=== PATIENT | female | born 1990 | race Caucasian/White ===

== ENCOUNTER 2018-08-05 02:33 | Inpatient (IN) | payer OTHER ==
[2018-08-05 03:44] LABS: Appearance,Urine Clear (Clear); Bacteria,Urine Rare /hpf; Bilirubin,Urine Negative (Negative); Blood,Urine Trace (Negative); Color,Urine Yellow; Glucose,Urine (UA) Negative (Negative); Ketones,Urine Negative (Negative); Leukocyte Esterase,Urine Negative (Negative); Mucus,Urine Rare /hpf; Nitrite,Urine Negative (Negative); Protein,Urine Trace (Negative); RBC,Urine 6 /hpf (0-5); Specific Gravity,Urine 1.022 (1.001-1.035); Squamous Epithelial Cell,Urine 4 /hpf (0-4); Urobilinogen,Urine <2.0 mg/dL (<2.0); WBC,Urine 1 /hpf (0-5)
[2018-08-05] MEDS: LACTATED RINGERS 1,000 ML IV SCH ×3 (03:53→11:38)
[2018-08-05] MEDS ORDERED: LABETALOL 5 MG/ML VIAL MDV IVP PRN ×4 (03:57→04:26)
[2018-08-05] MEDS ORDERED: LABETALOL 5 MG/ML VIAL MDV IVP SCH (04:00)
[2018-08-05 04:03] LABS: Basophils % (A) 0 %; Eosinophils # (A) 0.1 k/uL (0-0.7); Eosinophils % (A) 1 %; HCT 39.1 % (34.0-46.0); Lymphocytes # (A) 2.1 k/uL (1.0-4.8); Lymphocytes % (A) 20 %; MCH 31.2 pg (25.0-35.0); MCHC 33.2 g/dL (31.0-37.0); MCV 94.2 fL (80.0-100.0); Monocytes # (A) 0.4 k/uL (0-1.0); Monocytes % (A) 4 %; Neutrophils # (A) 7.7 k/uL (1.3-7.7); Neutrophils % (A) 75 %; Platelet Count 256 k/uL (150-450); RBC 4.15 m/uL (3.80-5.40); RDW 13.2 % (11.5-15.5); WBC 10.4 k/uL (3.8-10.6)
[2018-08-05 04:10] LABS: ALT 21 U/L (9-52); AST 11 U/L (14-36); Blood Urea Nitrogen 15 mg/dL (7-17); LDH 481 U/L (313-618); Uric Acid 3.6 mg/dL (3.7-7.4)
[2018-08-05] MEDS ORDERED: hydrALAZINE HCL 20 MG/ML 1 ML VIAL IVP PRN (04:26)
[2018-08-05] MEDS ORDERED: OXYTOCIN 10 UNIT/ML 1 ML VIAL IM PRN (05:20)
[2018-08-05] MEDS ORDERED: fentaNYL (PF) 50 MCG/ML 5 ML AMP ONE (05:20)
[2018-08-05] MEDS ORDERED: TERBUTALINE 1 MG/ML VIAL SQ PRN (05:20)
[2018-08-05] MEDS ORDERED: SODIUM CHLORIDE 0.9% 100 ML BAG ONE (05:20)
[2018-08-05] MEDS ORDERED: LIDOCAINE 0.5% (PF) 5 MG/ML (50 ML SDV) SQ PRN (05:20)
[2018-08-05] MEDS ORDERED: ROPIVACAINE 5MG/ML 20ML VIAL ONE (05:20)
[2018-08-05] MEDS ORDERED: METHYLERGONOVINE 0.2 MG/ML 1 ML AMP IM PRN (05:20)
[2018-08-05] MEDS ORDERED: CARBOPROST TROMETHAMINE 250 MCG/ML 1 ML AMP IM PRN (05:20)
[2018-08-05 07:04] VITALS: BMI 42.5
--- NOTE | 2018-08-05 08:44 | P.HPOB ---
History of Present Illness H&P Date: 08/05/18 Chief Complaint: Contractions This is a 28-year-old 1 para 0 woman with an estimated due date of 08/14 based on LMP consistent with second trimester ultrasound. She presents at 38+ weeks gestation with regular uterine contractions. Upon initial evaluation in labor and delivery triage her blood pressures were found to be consistently and significantly elevated. Laboratory evaluation for preeclampsia was negative and she was given multiple doses of labetalol without improvement in her blood pressure. During this timeframe she did change her cervix from 2-3 cm dilated and was regularly philly. She was therefore admitted in active labor and for further blood pressure management. She had not had a hypertensive issues in the prior to this. She denied any other specific symptoms such as headaches, visual changes, upper abdominal pain or sudden increase in swelling. Following admission she did immediately receive an epidural anesthetic which significantly improved her blood pressures. Currently she is resting comfortably with an epidural anesthetic in place. Laboratory data: Blood type A+, antibody screen negative, rubella immune, VDRL nonreactive, hepatitis B surface antigen negative, HIV negative, group B strep negative, glucose tolerance testing within normal limits. Review of Systems All systems: negative Past Medical History Past Medical History: Asthma Additional Past Medical History / Comment(s): Obesity History of Any Multi-Drug Resistant Organisms: None Reported Past Surgical History: No Surgical Hx Reported Past Anesthesia/Blood Transfusion Reactions: No Reported Reaction Past Psychological History: Depression Additional Psychological History / Comment(s): on Wellbutrin before Smoking Status: Former smoker Past Drug Use History: Marijuana - Past Family History Mother Family Medical History: Cancer Medications and Allergies Home Medications Medication Instructions Recorded Confirmed Type Pnv,Calcium 72/Iron/Folic Acid 1 tab PO DAILY 08/05/18 08/05/18 History [ Plus Tablet] Allergies Allergy/AdvReac Type Severity Reaction Status Date / Time Penicillins Allergy Unknown Verified 08/05/18 02:38 Exam Vital Signs Temp Pulse Resp BP Pulse Ox 08/05/18 05:40 98.4 F 106 H 16 173/90 98 08/05/18 02:39 97.7 F 148 H 18 148/89 99 Intake and Output 08/04/18 08/05/18 08/05/18 22:59 06:59 14:59 Other: # Voids 3 Weight 127.006 kg Upon my initial evaluation the patient is resting comfortably with an epidural anesthetic in place. heart tones showed decreased variability with occasional variable heart rate decelerations. On pelvic examination the cervix is 4-5 cm dilated, 100% effaced and the vertex is high in the -3 station. Artificial rupture of membranes is undertaken and clear fluid is noted. She is philly irregularly every 2-6 minutes. Results Result Diagrams: 08/05/18 03:45 08/05/18 03:45 Abnormal Lab Results - Last 24 Hours (Table) 08/05/18 08/05/18 Range/Units 03:30 03:45 Uric Acid 3.6 L (3.7-7.4) mg/dL AST 11 L (14-36) U/L Urine Protein Trace H (Negative) Urine Blood Trace H (Negative) Urine RBC 6 H (0-5) /hpf Urine Bacteria Rare H (None) /hpf Urine Mucus Rare H (None) /hpf Assessment and Plan (1) 38 weeks gestation of Current Visit: Yes Status: Acute Code(s): Z3A.38 - 38 WEEKS GESTATION OF SNOMED Code(s): 17749798 (2) Spontaneous onset of labor Current Visit: Yes Status: Acute Code(s): WZO9528 - SNOMED Code(s): 48975373 (3) Obesity Current Visit: Yes Status: Acute Code(s): E66.9 - OBESITY, UNSPECIFIED SNOMED Code(s): 141472740 (4) Hypertension complicating Current Visit: Yes Status: Acute Code(s): O16.9 - UNSPECIFIED MATERNAL HYPERTENSION, UNSPECIFIED TRIMESTER SNOMED Code(s): 80072197487963 Plan: 28-year-old 1 para 0 woman admitted at 38+ weeks gestation in early active labor with hypertension. Her hypertension has resolved with epidural anesthetic placement. heart tones are overall reassuring however there is some decreased variability on which will be monitored closely. Patient is currently in the supine position and we will attempt position changes to improve variability. Pitocin augmentation will be initiated as she is philly irregularly. Anticipate normal spontaneous vaginal delivery.
--- NOTE | 2018-08-05 12:57 | P.PROBDLV ---
Vaginal Delivery Note - . Vaginal Delivery Note: Findings: Male infant in the vertex presentation with Apgars of 9 at 1 minute and 9 at 5 minutes weighing 6 lbs. 2 oz., 2790 g. Small calcified placenta. Three-vessel cord. No perineal lacerations. Delivery summary: This is a 28-year-old 1 para 0 woman who presented at 38-5/7 weeks gestation in spontaneous active labor. She did have some significant hypertension on upon presentation which was managed with labetalol. Preeclamptic labs were normal. Her blood pressures did decrease significantly after she got an epidural anesthetic. She had an unremarkable progression from 3 cm to complete. She had strong urge to push. She was repositioned, And draped in the dorsal lithotomy position. Should a very precipitous delivery with pushing over 3 contractions to deliver a liveborn male infant onto the field. Nose and mouth were bulb suctioned. Cord was clamped and cut. Infant was placed on the maternal abdomen. Apgars 9 at 1 minute and 9 at 5 minutes. Weight 6 lbs. 2 oz. An intact, three-vessel cord placenta was expressed after 2 minutes second stage of labor. The perineum was inspected and no lacerations were noted. The uterus was massaged and was noted to be firm at the level of the umbilicus. Patient received Pitocin following the placenta. EBL was approximately 150 mL's. Both mother and were doing well post delivery in the room.
[2018-08-05] MEDS ORDERED: IBUPROFEN 600 MG TAB PO PRN (15:33)
[2018-08-05] MEDS ORDERED: ZOLPIDEM 5 MG TAB PO PRN (15:33)
[2018-08-05] MEDS ORDERED: diphenhydrAMINE 50 MG/ML 1 ML VIAL IVP PRN ×2 (15:33)
[2018-08-05] MEDS ORDERED: diphenhydrAMINE 50 MG CAP PO PRN (15:33)
[2018-08-05] MEDS ORDERED: LANOLIN CREAM 5 GM TUBE TOPICAL PRN (15:33)
[2018-08-05] MEDS ORDERED: HYDROCORTISONE 2.5% RECTAL CREAM 30 GM TUBE RECTAL PRN (15:33)
[2018-08-05] MEDS ORDERED: SIMETHICONE 80 MG CHEWABLE PO PRN (15:33)
[2018-08-05] MEDS ORDERED: ACETAMINOPHEN TAB 325 MG TAB PO PRN (15:33)
[2018-08-05] MEDS ORDERED: WITCH HAZEL 1 EACH MED..PAD TOPICAL PRN (15:33)
[2018-08-05] MEDS ORDERED: diphenhydrAMINE 25 MG CAP PO PRN (15:33)
[2018-08-05] MEDS ORDERED: OXYTOCIN 20 UNITS/1000 ML NS 1,000 ML IV SCH (15:45)
[2018-08-05] MEDS: SENNOSIDES-DOCUSATE SODIUM 1 EACH TAB PO SCH (21:09)
[2018-08-05 22:35] VITALS: RESP 16
[2018-08-06 07:42] LABS: Basophils % (A) 0 %; Eosinophils # (A) 0.1 k/uL (0-0.7); Eosinophils % (A) 1 %; HCT 35.6 % (34.0-46.0); Lymphocytes # (A) 1.9 k/uL (1.0-4.8); Lymphocytes % (A) 22 %; MCH 31.9 pg (25.0-35.0); MCHC 33.6 g/dL (31.0-37.0); MCV 94.8 fL (80.0-100.0); Mean Platelet Volume 6.9; Monocytes # (A) 0.4 k/uL (0-1.0); Monocytes % (A) 4 %; Neutrophils # (A) 6.2 k/uL (1.3-7.7); Neutrophils % (A) 72 %; Platelet Count 248 k/uL (150-450); RBC 3.76 m/uL (3.80-5.40); RDW 13.5 % (11.5-15.5); WBC 8.6 k/uL (3.8-10.6)
--- NOTE | 2018-08-06 09:40 | P.DS ---
Providers Date of admission: 08/05/18 05:08 Expected date of discharge: 08/06/18 Attending physician: Braden Foss Primary care physician: Stated None - Discharge Diagnosis(es) (1) Status post vaginal delivery Current Visit: Yes Status: Acute (2) 38 weeks gestation of Current Visit: Yes Status: Acute (3) Hypertension complicating Current Visit: Yes Status: Acute (4) Obesity Current Visit: Yes Status: Acute (5) Spontaneous onset of labor Current Visit: Yes Status: Acute Hospital Course: This is a very pleasant 28-year-old 1 para 0 who presented to labor and delivery at 38-5/7 weeks in spontaneous active labor. Patient did note significant hypertension upon presentation which was managed with labetalol. Pre-clinic labs are normal and her blood pressures decreased significantly after epidural analgesia. Patient progressed to complete had a normal spontaneous vaginal delivery of a viable male at 1244, weight of 6 lbs. 2 oz., Apgars of 9 and 9 at one and 5 minutes respectively. Patient's course has been uneventful. On this day #1 she is ambulating and voiding without difficulty. She is tolerating a regular diet without nausea or vomiting. She is breast-feeding. She states her lochia is moderate. She does wish discharge home at 24 hours. Plan - Discharge Summary New Discharge Prescriptions: No Action Pnv,Calcium 72/Iron/Folic Acid [ Plus Tablet] 1 tab PO DAILY Discharge Medication List Pnv,Calcium 72/Iron/Folic Acid [ Plus Tablet] 1 tab PO DAILY 08/05/18 [ History] Follow up Appointment(s)/Referral(s): Braden Foss MD [STAFF PHYSICIAN] - 6 Weeks Patient Instructions/Handouts: Vaginal Delivery (DC), Vaginal Delivery (GEN) Discharge Disposition: HOME SELF-CARE
[2018-08-07] MEDS: LACTATED RINGERS 1,000 ML IV SCH ×2 (00:29→05:13)
[2018-08-07] MEDS: SENNOSIDES-DOCUSATE SODIUM 1 EACH TAB PO SCH ×3 (00:30→09:27)
[2018-08-07 08:36] VITALS: BP 154/92; PULSE 103; TEMP 98.5
--- NOTE | 2018-08-07 10:15 | P.PNOBGVD ---
Subjective - Subjective Principal diagnosis: PPD 2 Interval history: Patient is doing well, patient ended up staying overnight secondary to elevated bilirubin level in her male. Patient denies concerns of herself today and will be discharged home. She is ambulating and voiding without difficulty. She is tolerating a regular diet and she denies any pain control issues. She is wishing to breast-feed but however does not have a pump at this time. Patient reports: Reports appetite normal, Reports voiding normally, Reports pain well controlled, Reports ambulating normally : doing well (On a bili blanket) Objective - Latest Vital Signs Latest vital signs: Vital Signs Temp Pulse Resp BP Pulse Ox 08/07/18 08:00 98.5 F 103 H 16 154/92 08/07/18 00:00 98.6 F 105 H 16 148/93 98 08/06/18 16:00 98.4 F 102 H 16 147/87 - Exam Extremities: Present: normal Abdomen: Present: normal appearance, soft Uterus: Present: normal, firm Assessment and Plan (1) Status post vaginal delivery Current Visit: Yes Status: Acute Code(s): BTX2543 - SNOMED Code(s): 382958842 (2) 38 weeks gestation of Current Visit: Yes Status: Acute Code(s): Z3A.38 - 38 WEEKS GESTATION OF SNOMED Code(s): 47481392 (3) Hypertension complicating Current Visit: Yes Status: Acute Code(s): O16.9 - UNSPECIFIED MATERNAL HYPERTENSION, UNSPECIFIED TRIMESTER SNOMED Code(s): 28275111263542 (4) Obesity Current Visit: Yes Status: Acute Code(s): E66.9 - OBESITY, UNSPECIFIED SNOMED Code(s): 823752490 (5) Spontaneous onset of labor Current Visit: Yes Status: Acute Code(s): QAH4181 - SNOMED Code(s): 10101111 Plan: We'll plan discharge home today. Patient is to follow-up with Dr. Hebert in 6 weeks for routine care. Should she have any concerns prior to this appointment she is urged to call the office to be seen sooner.
== END 2018-08-07 14:45 | disposition home or self-care (01) | DRG 806 ==
LOC: FBPOP 02:33 → 4FBP 05:08
PROVIDERS: ADMIT Obstetrics & Gynecology; ATTEND Obstetrics & Gynecology
PROC: 00HU33Z Insertion of Infusion Device into Spinal Canal, Percutaneous Approach (ICD-10-PCS; principal; 2018-08-05)
PROC: 10E0XZZ Delivery of Products of Conception, External Approach (ICD-10-PCS; principal; 2018-08-05)
PROC: 3E0R3NZ Introduction of Analgesics, Hypnotics, Sedatives into Spinal Canal, Percutaneous Approach (ICD-10-PCS; principal; 2018-08-05)
PROC: 10907ZC Drainage of Amniotic Fluid, Therapeutic from Products of Conception, Via Natural or Artificial Opening (ICD-10-PCS; principal; 2018-08-05)
DX: O16.4 Unspecified maternal hypertension, complicating childbirth (principal); Z68.41 Body mass index [BMI] 40.0-44.9, adult; Z37.0 Single live birth; E66.9 Obesity, unspecified; O62.3 Precipitate labor; O99.214 Obesity complicating childbirth; Z3A.38 38 weeks gestation of pregnancy; Z87.891 Personal history of nicotine dependence
CPT/HCPCS: 59025; 81001; 82565; 83615; 84450; 84460; 84520; 84550; 85025; 86850; 86900; 86901; 88307; 96360; 96361; 96375; 96376; 99215

== ENCOUNTER 2018-12-02 18:18 | Emergency (ER) | payer OTHER ==
--- NOTE | 2018-12-02 19:59 | XR ---
Right foot 3 views. History pain. Comparison none. FINDINGS: I see no fracture nor dislocation. Metatarsals are intact. There are no erosions. IMPRESSION: Negative right foot exam.
--- NOTE | 2018-12-02 20:00 | XR ---
Right ankle 3 views. History pain. Comparison none. FINDINGS: Ankle mortise is anatomic. I see no fracture nor dislocation. Joint spaces are normal. There is mild soft tissue swelling over the lateral malleolus. Impression Negative right ankle exam for fracture. Mild soft tissue swelling.
--- NOTE | 2018-12-02 20:02 | ED ---
Lower Extremity Injury HPI - General Chief Complaint: Extremity Injury, Lower Stated Complaint: Foot injury Source: patient Mode of arrival: ambulatory Limitations: no limitations - History of Present Illness Initial Comments: 28-year-old female states she was walking today when she misstepped rolling her right ankle. Patient denies fall or injury to any other extremity, head injury injury to the back or neck. Patient denies he lost conscious. Patient states she had pain in the lateral aspect of her ankle, she states she has had previous injury to the ankle including multiple sprains. Patient states she feels increased laxity. Patient denies any numbness tingling or loss sensation , coolness or pallor of the extremity. Patient denies a dislocation. Patient denies any knee pain associated with fever ankle pain. Remaining review of system negative upon arrival patient appears well, she is able toward. Full weight-bearing.Patient denies any recent fever, chills, shortness of breath, chest pain, back pain, abdominal pain, nausea or vomiting, numbness or tingling , dysuria or hematuria, constipation or diarrhea, headaches or visual changes, or any other complaints. - Related Data Home Medications Medication Instructions Recorded Confirmed Pnv,Calcium 72/Iron/Folic Acid 1 tab PO DAILY 08/05/18 08/05/18 [ Plus Tablet] Allergies Allergy/AdvReac Type Severity Reaction Status Date / Time Penicillins Allergy Unknown Verified 12/02/18 18:25 Review of Systems ROS Statement: Those systems with pertinent positive or pertinent negative responses have been documented in the HPI. ROS Other: All systems not noted in ROS Statement are negative. Past Medical History Past Medical History: Asthma Additional Past Medical History / Comment(s): Obesity History of Any Multi-Drug Resistant Organisms: None Reported Past Surgical History: No Surgical Hx Reported Past Anesthesia/Blood Transfusion Reactions: No Reported Reaction Past Psychological History: Depression Smoking Status: Current some day smoker Past Alcohol Use History: None Reported Past Drug Use History: Marijuana - Past Family History Mother Family Medical History: Cancer General Exam - General Exam Comments Initial Comments: General: The patient is awake and alert, in no distress, and does not appear acutely ill. Eye: Pupils are equal, round and reactive to light, extra-ocular movements are intact. No nystagmus. There is normal conjunctiva bilaterally. No signs of icterus. Ears, nose, mouth and throat: There are moist mucous membranes and no oral lesions. Neck: The neck is supple, there is no tenderness or JVD. Cardiovascular: There is a regular rate and rhythm. No murmur, rub or gallop is appreciated. Respiratory: Lungs are clear to auscultation, respirations are non-labored, breath sounds are equal. No wheezes, stridor, rales, or rhonchi. Musculoskeletal: Upon inspection of the ankles bilaterally there is mild soft tissue swelling over the lateral malleolus of the right ankle in comparison with the left. Patient is tender patient of the lateral malleolus. Patient is able to fully range at the ankles equal comparison bilaterally. No noted laxity. Strength 5 out of 5 with dorsiflexion and plantarflexion. Patient is increased pain with inversion in comparison with eversion. Patient sensation intact of the lower extremities from knee to toes equal comparison bilaterally. Compartments are soft and compressible no evidence of footdrop. Dorsalis pedis pulses are +2 equal comparison bilaterally Neurological: A&O x 3. CN II-XII intact, There are no obvious motor or sensory deficits. Coordination appears grossly intact. Speech is normal. Skin: Skin is warm and dry and no rashes or lesions are noted. Psychiatric: Cooperative, appropriate mood & affect, normal judgment. Limitations: no limitations Course Vital Signs 12/02/18 12/02/18 18:23 20:05 Temperature 98.8 F 97.8 F Pulse Rate 108 H 88 Respiratory 20 16 Rate Blood Pressure 136/77 129/65 O2 Sat by Pulse 98 97 Oximetry Medical Decision Making - Medical Decision Making imaging studies are negative for acute osseous process. There is concern for possible ligamentous injury however I would feel this is minor. Patient is placed in air stirrup and given instruction to follow-up with [facility] surgery if symptoms persist. Patient has no pain to palpation of the forefoot concerning for Lisfranc. Patient has some mild tenderness to palpation over the lateral aspect of the right foot. No evidence of ecchymosis. No soft tissue swelling of the foot. Patient neurovascularly intact, compartments soft and compressible. No evidence of the tram. At this time do feel patient is stable for discharge with [facility] instructions and outpatient follow-up. Patient is agreeable plan. Denies questions at this time. Return parameters were discussed at length with patient who verbalizes understanding Disposition Clinical Impression: Right ankle sprain Disposition: HOME SELF-CARE Condition: Good Instructions (If sedation given, give patient instructions): Ankle Sprain (ED) , R.I.C.E. Treatment (ED) Additional Instructions: Please use medication as discussed. Please follow-up with family doctor in the next 2 days, if symptoms persist for greater than 1 week please seek orthopedic surgery evaluation. Please return to emergency room if the symptoms increase or worsen or for any other concerns. Is patient prescribed a controlled substance at d/c from ED?: No Referrals: None,Stated [Primary Care Provider] - 1-2 days Zaid Kang DO [Medical Doctor] - 1-2 days Time of Disposition: 20:02
[2018-12-02 20:23] VITALS: BP 129/65; PULSE 88; RESP 16; TEMP 97.8
== END 2018-12-02 20:05 | disposition home or self-care (01) ==
LOC: EC 18:18
DX: S93.401A Sprain of unspecified ligament of right ankle, initial encounter (principal); F17.200 Nicotine dependence, unspecified, uncomplicated; Z88.0 Allergy status to penicillin; X50.1XXA Overexertion from prolonged static or awkward postures, initial encounter; Y93.89 Activity, other specified; Y92.009 Unspecified place in unspecified non-institutional (private) residence as the place of occurrence of the external cause
CPT/HCPCS: 29515; 99283

== ENCOUNTER → 2021-09-15 | Outpatient (CLI) | payer OTHER | END | disposition home or self-care (01) | LOC: LABWHC1 06:29 | PROVIDERS: ATTEND Emergency Medicine | DX: Z20.822 Contact with and (suspected) exposure to COVID-19 (principal) | CPT/HCPCS: 87635 ==

== ENCOUNTER → 2021-09-16 | Outpatient (CLI) | payer OTHER | END | disposition home or self-care (01) | LOC: LABWHC1 06:26 | PROVIDERS: ATTEND Emergency Medicine | DX: Z20.822 Contact with and (suspected) exposure to COVID-19 (principal) | CPT/HCPCS: 87635 ==

== ENCOUNTER 2021-12-31 08:32 | Emergency (ER) | payer MEDICAID, OTHER ==
[2021-12-31 08:40] VITALS: RESP 18; TEMP 97.6
--- NOTE | 2021-12-31 09:15 | XR ---
EXAMINATION TYPE: XR knee 4V RT DATE OF EXAM: 12/31/2021 COMPARISON: NONE HISTORY: Pain TECHNIQUE: Three views are submitted. FINDINGS: Osseous structures are intact. No acute fracture seen. Well-corticated chronic appearing ossific den sity adjacent to the lateral tibia may represent accessory ossicle or previous trauma. Mild narrowing of the patellofemoral joint and medial compartment of the knee joint with mild osteopenia. IMPRESSION: 1. Mild osteoarthritis 2. No acute fracture
--- NOTE | 2021-12-31 09:15 | ED ---
Fall HPI - General Chief Complaint: Fall Stated Complaint: [facility] - Fall/Rt Knee Injury Time Seen by Provider: 12/31/21 08:42 Source: patient, RN notes reviewed Mode of arrival: ambulatory Limitations: no limitations - History of Present Illness Initial Comments: This a 31-year-old female presents emergency Department with chief complaint right knee injury, arm injury. Patient states that she works at the [employer], states that she was outside in which it was dark she states the forklift the sticking out she tripped over the forklift causing her to fall, strain her right arm, landing on her right knee. She has an abrasion on her right knee she did update her tetanus. She states she's had prior knee issues she is concerned as it is painful currently. No head injury no loss conscious. - Related Data Previous Rx's Medication Instructions Recorded Ibuprofen [Motrin] 600 mg PO Q8HR PRN #20 tab 12/31/21 Allergies Allergy/AdvReac Type Severity Reaction Status Date / Time Penicillins Allergy Family Verified 12/31/21 09:23 History - See Comments Review of Systems ROS Statement: Those systems with pertinent positive or pertinent negative responses have been documented in the HPI. ROS Other: All systems not noted in ROS Statement are negative. Past Medical History Past Medical History: Asthma Additional Past Medical History / Comment(s): Obesity History of Any Multi-Drug Resistant Organisms: None Reported Past Surgical History: No Surgical Hx Reported Past Anesthesia/Blood Transfusion Reactions: No Reported Reaction Past Psychological History: Depression Smoking Status: Current every day smoker Past Alcohol Use History: None Reported Past Drug Use History: Marijuana - Past Family History Mother Family Medical History: Cancer General Exam Limitations: no limitations General appearance: alert, in no apparent distress Head exam: Present: atraumatic, normocephalic, normal inspection Eye exam: Present: normal appearance, PERRL, EOMI. Absent: scleral icterus, conjunctival injection, periorbital swelling ENT exam: Present: normal exam, normal oropharynx, mucous membranes moist Neck exam: Present: normal inspection, full ROM. Absent: tenderness, meningismus, lymphadenopathy Respiratory exam: Present: normal lung sounds bilaterally. Absent: respiratory distress, wheezes, rales, rhonchi, stridor Cardiovascular Exam: Present: regular rate, normal rhythm, normal heart sounds. Absent: systolic murmur, diastolic murmur, rubs, gallop, clicks Extremities exam: Present: other (Right knee there is an abrasion, tenderness over the patellar region, patient does have full range of motion no laxity noted neurovascular intact) Neurological exam: Present: alert, reflexes normal. Absent: motor sensory deficit Skin exam: Present: warm, dry, intact, normal color. Absent: rash Course Vital Signs 12/31/21 12/31/21 08:37 09:40 Temperature 97.6 F Pulse Rate 89 71 Respiratory 18 18 Rate Blood Pressure 141/73 135/100 O2 Sat by Pulse 98 99 Oximetry Medical Decision Making - Medical Decision Making X-ray does not reveal any evidence of acute fracture. Patient has right knee contusion, abrasion will be discharged in stable condition. Disposition Clinical Impression: Fall, Contusion of right knee, Abrasion of right knee Disposition: HOME SELF-CARE Condition: Stable Instructions (If sedation given, give patient instructions): Knee Pain (ED) Additional Instructions: Please return to the Emergency Department if symptoms worsen or any other concerns. Prescriptions: Ibuprofen [Motrin] 600 mg PO Q8HR PRN #20 tab PRN Reason: Pain Is patient prescribed a controlled substance at d/c from ED?: No Referrals: None,Stated [Primary Care Provider] - 1-2 days Time of Disposition: 10:04
[2021-12-31 09:48] VITALS: BP 135/100; PULSE 71
== END 2021-12-31 10:32 | disposition home or self-care (01) ==
LOC: EC 08:32
DX: S80.01XA Contusion of right knee, initial encounter (principal); J45.909 Unspecified asthma, uncomplicated; F32.A Depression, unspecified; F17.200 Nicotine dependence, unspecified, uncomplicated; F12.90 Cannabis use, unspecified, uncomplicated; Z88.0 Allergy status to penicillin; W01.0XXA Fall on same level from slipping, tripping and stumbling without subsequent striking against object, initial encounter
CPT/HCPCS: 99283

== ENCOUNTER → 2023-09-22 | Outpatient (CLI) | payer BC ==
--- NOTE | 2023-09-22 19:10 | FL ---
EXAMINATION TYPE: FL barium swallow DATE OF EXAM: 09/22/2023 COMPARISON: None HISTORY: Dysphagia TECHNIQUE: A double air contrast esophagram study is performed. FINDINGS: Contrast passes through the esophagus without hesitancy. Esophagus has normal caliber and contour to the gastroesophageal junction. A secondary contraction was evident in the horizontal drinking positio n. Otherwise, there was normal transit to the stomach. Some reflux into the distal half of the esopha alice was evident during the examination. Fluoroscopy time: 37 seconds. DAP: 1561.42 Images: 96 IMPRESSION: 1. Mild gastroesophageal reflux into the midesophagus. 2. Minimal presbyesophagus.
== END | disposition home or self-care (01) ==
LOC: RADUSWWP 09:57
PROVIDERS: ATTEND Otolaryngology
DX: K22.89 Other specified disease of esophagus (principal); K21.9 Gastro-esophageal reflux disease without esophagitis; R49.0 Dysphonia; R13.10 Dysphagia, unspecified
CPT/HCPCS: 74220